=== PATIENT | male | born 1990 | race Caucasian/White ===

== ENCOUNTER 2017-03-21 09:57 | Emergency (ER) | payer OTHER ==
[~2017-03-21] VITALS: Ht 175.3 cm; Wt 86.2 kg
[~2017-03-21 09:57] MED LIST: ANTIBIOTIC O500 U/GM TOP; DILAUDID2 MG PO; PERCOCET 325 MG1 TA2 PO; PROTONIX 20MG T20 MG PO
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
[2017-03-21] MEDS ORDERED: PERCOCET 5-3251 EACH PO (10:44)
--- NOTE | 2017-03-21 10:52 | RADIOLOGY REPORT ---
EXAMINATION: XR ANKLE, LEFT CLINICAL INFORMATION: Left ankle pain and swelling. Evaluate for fracture. COMPARISON: None. TECHNIQUE: AP, lateral, and mortise views of the left ankle. FINDINGS: There is an oblique fracture of the distal fibular diametaphysis with minimal medial and posterior displacement. There is moderate lateral soft tissue swelling. The ankle mortise is grossly intact. IMPRESSION: Minimally displaced oblique fracture of the distal fibular diametaphysis with moderate lateral soft tissue swelling.
== END 2017-03-21 12:05 ==
LOC: ERH 09:57
DX: S82.432A Displaced oblique fracture of shaft of left fibula, initial encounter for closed fracture (principal); V03.99XA Pedestrian with other conveyance injured in collision with car, pick-up truck or van, unspecified whether traffic or nontraffic accident, initial encounter; Y93.9 Activity, unspecified; Y92.9 Unspecified place or not applicable
CPT/HCPCS: 73610-LT

== ENCOUNTER 2018-06-23 04:28 | Inpatient (IN) | payer OTHER ==
[~2018-06-23] VITALS: Ht 175.3 cm; Wt 74.8 kg
[~2018-06-23 04:28] MED LIST changes: +ATIVAN1 M1 PO; +CHLORDIAZEPOXID25 M3 PO; +HYDROXYZINE HCL50 M1 PO; +NAPROXEN500 M2 PO; +PERCOCET 5-3251 EACH PO; +PRILOSEC OTC20 M1 PO; +ZOFRAN ODT4 M1 SL
[2018-06-23 04:34] VITALS: BP 168/110
--- NOTE | 2018-06-23 04:34 | ED GENERAL ADULT ---
History of Present Illness General Chief Complaint: General Adult Stated Complaint: ANXIOUS Source: patient Exam Limitations: no limitations Vital Signs & Intake/Output Vital Signs & Intake/Output Vital Signs Date Time Temp Pulse Resp B/P B/P Pulse O2 O2 Flow FiO2 Mean Ox Delivery Rate 06/23 0958 98.7 99 20 130/73 96 Room Air 06/23 0836 97.8 85 22 118/74 96 Room Air 06/23 0830 97.8 85 20 118/74 06/23 0630 98.8 76 18 126/82 06/23 0629 98.8 76 18 126/82 99 Room Air 06/23 0505 98.2 76 20 168/110 / 0447 99 Room Air 06/23 0435 98.2 76 20 168/110 99 Room Air 06/23 0434 98.2 76 20 168/110 Allergies Coded Allergies: No Known Allergies (07/12/17) Reconcile Medications No Known Home Medications Triage Nurses Notes Reviewed? yes Onset: Gradual Duration: hour(s): Timing: recent history Injury Environment: home Severity: moderate Modifying Factors: Improves With: rest, other (better with alcohol). Associated Symptoms: "I got the shakes" HPI: 28 yo gentleman h/o alcohol abuse presents seeking alcohol detox. He notes that his last drink was last night. "I usually drink a lot." He notes prior to stopping, he would drink hard liquor "all the time." He has never had a withdrawal seizure. (Mireille PANDA,Maulik Santamaria) Past History Travel History Traveled to [place] past 21 day No Medical History Any Pertinent Medical History? 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 No (Mireille PANDA,Maulik Santamaria) Review of Systems Review of Systems Constitutional: Denies: see HPI. (Maulik Kendrick MD) Physical Exam Physical Exam General Appearance: well developed/nourished, mild distress, moderate distress Comments: Review of Systems - except as otherwise noted in HPI Review of Systems Constitutional:no symptoms. EENTM:no symptoms. Respiratory:no symptoms. Cardiovascular:no symptoms. GI:no symptoms. Genitourinary:no symptoms. Musculoskeletal:no symptoms. Skin:no symptoms. Neurological/Psychological:no symptoms. Hematologic/Endocrine:no symptoms. Immunologic/Allergic:no symptoms. All Other Systems: Reviewed and Negative Physical Exam Physical Exam General Appearance: well developed/nourished, mild/moderate distress Head: atraumatic, normal appearance Eyes: Bilateral: normal appearance. Ears, Nose, Throat: normal pharynx, normal ENT inspection Neck: normal inspection, supple, full range of motion Respiratory: normal breath sounds, chest non-tender, no respiratory distress, quiet respiration, lungs clear Cardiovascular: regular rate/rhythm Gastrointestinal: normal bowel sounds, soft, non-tender, no organomegaly Back: normal inspection, normal range of motion Extremities: normal inspection, normal capillary refill, normal range of motion, no edema, symmetric tremor of arms and legs. Neurologic/Psych: no motor/sensory deficits, awake, alert, oriented x 3 Skin: intact, normal color, warm/dry Core Measures ACS in differential dx? No CVA/TIA Diagnosis: No Sepsis Present: No Sepsis Focused Exam Completed? No (Mireille PANDA,Maulik Santamaria) Progress Differential Diagnoses I considered the following diagnoses in my evaluation of the patient: alcohol withdrawal vs detox vs other. Plan of Care: Orders Procedure Date/time Status Regular Diet 06/23 L Active CASE MANAGEMENT CONSULT 06/23 712 Active EKG 06/23 06 Active EKG 06/23 0453 Active Pathway - chart 06/23 434 Active CIWA 06/23 434 Active URINE DRUG SCREEN FOR ER ONLY 06/23 434 Active ETHANOL 06/23 434 Complete COMPREHENSIVE METABOLIC PANEL 06/23 434 Complete CBC WITHOUT DIFFERENTIAL 06/23 434 Complete Current Medications Sig/Vance Start time Last Medication Dose Stop Time Status Admin Clonidine 0.1 MG BID 06/23 2100 UNVr (Catapres) Gabapentin 300 MG Q8 06/23 06 UNVr 06/23 (Neurontin) 0505 Laboratory Tests 06/23/18 0445: Anion Gap 16, Estimated GFR > 60, BUN/Creatinine Ratio 14.3, Glucose 110 H, Calcium 9.1, Total Bilirubin 0.6, AST 40, ALT 30, Alkaline Phosphatase 53, Total Protein 7.3, Albumin 4.1, Globulin 3.2, Albumin/Globulin Ratio 1.3, CBC w Diff NO MAN DIFF REQ, RBC 4.78, MCV 92.2, MCH 31.9 H, MCHC 34.6, RDW 16.4 H, MPV 8.0, Gran % 66.5, Lymphocytes % 24.5, Monocytes % 5.1, Eosinophils % 3.3, Basophils % 0.6, Absolute Granulocytes 5.6, Absolute Lymphocytes 2.0, Absolute Monocytes 0.4, Absolute Eosinophils 0.3, Absolute Basophils 0, Serum Alcohol 75.0 Initial ED EKG: initial ekg... afib... likely artifact, ekg#2... nsr, no acute changes. Hand-Off Endorsed To: Kit Garcia DO Endorsed Time: 0700 Pending: consult, labs (Mireille PANDA,Maulik Santamaria) Departure Departure Disposition: STILL A PATIENT Condition: Stable Clinical Impression Primary Impression: Alcoholism Referrals: Patient Has No Primary Care Dr (PCP/Family) Departure Forms: Customer Survey General Discharge Information Prescriptions: Current Visit Scripts No Known Home Medications (Mireille PANDA,Maulik Santamaria) Admission Note Spoke With: Aftab Cheney MD Documentation of Exam: Documentation of any treatments & extenuating circumstances including Concerns Regarding Discharge (functional status, medication knowledge or non-compliance, living conditions, etc.) that warrant an admission rather than observation: [The patient needs admission for Ativan protocol and neuro evaluations every 6 hours. He was evaluated by case management in has been approved for alcohol detox admission.] He had a CIWA score greater than 18 (Kit Garcia DO) Critical Care Note Critical Care Note Critical Care Time: non-applicable (Mireille PANDA,Maulik Santamaria)
[2018-06-23 04:54] LABS: ABSOLUTE BASOPHIL COUNT 0 /CUMM (0.0-0.2); ABSOLUTE EOSINOPHIL COUNT 0.3 /CUMM (0.0-0.7); ABSOLUTE GRANULOCYTE CT 5.6 /CUMM (1.4-6.5); ABSOLUTE MONOCYTE COUNT 0.4 /CUMM (0.10-0.60); BASOPHIL % 0.6 % (0.0-2.0); EOSINOPHIL % 3.3 % (0-5); GRANULOCYTE % 66.5 % (42.2-75.2); HEMATOCRIT 44.1 % (42-52); MEAN CORPUSCULAR HGB 31.9 PG (27.0-31.0); MEAN CORPUSCULAR HGB CONC 34.6 G/DL (33.0-37.0); MEAN CORPUSCULAR VOLUME 92.2 FL (80.0-94.0); PLATELET COUNT 239 /CUMM (130-400); RBC DISTRIBUTION WIDTH 16.4 % (11.5-14.5); RED BLOOD CELL CT 4.78 /CUMM (4.70-6.10); WHITE BLOOD CELL COUNT 8.4 /CUMM (4.8-10.8)
[2018-06-23 06:30] VITALS: BP 126/82
[2018-06-23 08:30] VITALS: BP 118/74
[2018-06-23 10:30] VITALS: BP 130/73
--- NOTE | 2018-06-23 12:24 | History & Physical ---
Khushbu Cotton 06/23/18 1223: General Information and HPI MD Statement: I have seen and personally examined ANTHONY CLINE and documented this H&P. The patient is a 28 year old M who presented with a patient stated chief complaint of [alcohol detox]. Source of Information: patient, mentor friend Exam Limitations: no limitations History of Present Illness: Patient is 28-year-old male with past medical history of PTSD, alcohol dependence and anxiety came in for alcohol detox. Patient states that he started drinking since the age of 14 years, and over past couple of years he has been drinking around 34 bottles of vodka, every 2-3 days. Patient states that his last drink was yesterday in the afternoon and he drank one liter of vodka. Patient's [place] friend was present by bedside, and stated that patient was sober for 9 months from June 2017 until the end of March 2018 however after that his brother got out of prison and together they started drinking again. When asked about triggering factor, patient reported that he is very stressed in his life. Patient also reports of dry heaving however denies any vomiting. No history of withdrawal seizures. Patient states that his last alcohol detox was 2016 he states that he was admitted to the hospital but there are no records in the system. Patient has been on no medications since October 2017. Patient denied any headache/chest pain/difficulty breathing/abdominal discomfort /burning micturition/weakness or swelling in lower extremities. 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 Exam & Diagnostic Data Last 24 Hrs of Vital Signs/I&O Vital Signs Date Time Temp Pulse Resp B/P B/P Pulse O2 O2 Flow FiO2 Mean Ox Delivery Rate 06/23 1030 98.7 99 20 130/73 06/23 0958 98.7 99 20 130/73 96 Room Air 06/23 0836 97.8 85 22 118/74 96 Room Air 06/23 0830 97.8 85 20 118/74 06/23 0630 98.8 76 18 126/82 06/23 0629 98.8 76 18 126/82 99 Room Air 06/23 0505 98.2 76 20 168/110 06/23 0447 99 Room Air 06/23 0435 98.2 76 20 168/110 99 Room Air 06/23 0434 98.2 76 20 168/110 Intake & Output 06/23 1600 06/23 0800 06/23 0000 Intake Total 0 Output Total Balance 0 Intake, Oral 0 Patient 74.843 kg Weight Weight Reported by Patient Measurement Method Physical Exam General Appearance Alert, Oriented X3, Cooperative, No Acute Distress Skin No Rashes Skin Temp/Moisture Exam: Warm/Dry Sepsis Skin Exam (color): Normal for Ethnicity HEENT Atraumatic Neck Supple Cardiovascular tachycardia Lungs Clear to Auscultation, Normal Air Movement Abdomen Normal Bowel Sounds, Soft, No Tenderness Neurological Normal Speech, Normal Tone Extremities No Clubbing, No Cyanosis, No Edema Last 24 Hrs of Labs/Haseeb: Laboratory Tests 06/23/18 0445: Anion Gap 16, Estimated GFR > 60, BUN/Creatinine Ratio 14.3, Glucose 110 H, Calcium 9.1, Total Bilirubin 0.6, AST 40, ALT 30, Alkaline Phosphatase 53, Total Protein 7.3, Albumin 4.1, Globulin 3.2, Albumin/Globulin Ratio 1.3, CBC w Diff NO MAN DIFF REQ, RBC 4.78, MCV 92.2, MCH 31.9 H, MCHC 34.6, RDW 16.4 H, MPV 8.0, Gran % 66.5, Lymphocytes % 24.5, Monocytes % 5.1, Eosinophils % 3.3, Basophils % 0.6, Absolute Granulocytes 5.6, Absolute Lymphocytes 2.0, Absolute Monocytes 0.4, Absolute Eosinophils 0.3, Absolute Basophils 0, Serum Alcohol 75.0 Assessment/Plan Assessment: Patient is 28-year-old male with past medical history of PTSD, alcohol dependence and anxiety came in for alcohol detox. Patient states that he started drinking since the age of 14 years, and over past couple of years he has been drinking around 34 bottles of vodka, every 2-3 days. Patient states that his last drink was yesterday in the afternoon and he drank one liter of vodka. Patient's [place] friend was present by bedside, and stated that patient was sober for 9 months from June 2017 until the end of March 2018 however after that his brother got out of prison and together they started drinking again. When asked about triggering factor, patient reported that he is very stressed in his life. Patient also reports of dry heaving however denies any vomiting. No history of withdrawal seizures. Patient states that his last alcohol detox was 2016 he states that he was admitted to the hospital but there are no records in the system. Patient has been on no medications since October 2017. Patient denies any suicidal or homicidal ideations. Labs and vitals as above. No imaging done on admission. Assessment and plan Patient will be admitted on general medicine floor for alcohol detox, his CIWA in ER was 14 this am, scoring for tremors, anxiety, agitation. Will start him on Ativan 2 mg by mouth every 6 [id number] and 1 mg every when necessary for anxiety/agitation. Will give him by mouth thiamine, folic acid, and multivitamin tablets. Patient would eventually need psych evaluation for PTSD which also be done as an outpatient. Patient smokes one pack of cigarettes per day, will start him on 21 mg nicotine patch DVT prophylaxis subcutaneous Lovenox Patient is full code. As Ranked By This Provider Problem List: 1. Alcohol dependence syndrome Core Measures/Misc (08/11) Acute Coronary Syndrome ACS Diagnosis: No Congestive Heart Failure Congestive Heart Failure Diagnosis No Cerebrovascular Accident CVA/TIA Diagnosis: No VTE (View Protocol) VTE Risk Factors Age>40 No Mechanical VTE Prophylaxis d/t N/A MechProphylax Ordered No VTE Pharm Prophylaxis d/t NA PharmProphylax ordered Sepsis (View protocol) Sepsis Present: No If YES complete Sepsis Event Note If YES complete Sepsis Event Note Aftab Cheney MD 06/23/18 2213: Core Measures/Misc (08/11) Sepsis (View protocol) If YES complete Sepsis Event Note If YES complete Sepsis Event Note Attending MD Review Statement Attending Statement Attending MD Statement: examined this patient, discuss w/resident/PA/TENTER, agreed w/resident/PA/TENTER, reviewed EMR data (avail), amended to note Attending Assessment/Plan: The patient is a 28 yo male with h/o "PTSD", anxiety and EtOH dependence who presented in the ED requesting alcohol detox. He stated he drinks 3-4 bottles of vodka q2-3 days and drank 1 L of vodka the day prior to admission. He stated he had a 9 month period of sobriety (ended 04/11). He denied h/o seizures or suicidal ideation. No abdominal pain specifically, however endorsees generalized discomfort due to withdrawal at the time of my exam. Review of records indicate that he has had prior detox using Ativan/Librium prescribed by ED (no inpatient detox here at [place]). The patient did admit to using marijuana (tox screen ordered, however no urine obtained). Physical Exam: VS: T 98.7, P 99, R 20, BP 130/73, PO 96% RA HEENT: eyes- PERRLA, EOMI kaley- moist mucosa w/o lesions Neck: no adenopathy Chest: clear Cor: RRR nl S1, S2 w/o murm Abd: BS+, soft, NT, - HSM Ext: no edema, pulses 2+ Neuro: alert & oriented x 3, non-focal exam, mild tremor Labs/Tests- as above Impression/Plan: #Alcohol Dependence/Withdrawal- The patient scored CIWA of 12-14 in ED with blood alcohol level of 75. Has long h/o alcohol dependence and ?only outpatient Rx here. Appears to represent uncomplicated EtOH withdrawal. Plan: Admit to general medicine. Thiamine, MVI, folic acid, Ativan/CIWA protocol- as per protocol. Social service consult- ? IOP when discharged. #?H/O PTSD- as per patient- he did state he uses marijuana. Unclear if he obtained this diagnosis from a psychiatrist. Plan: Will discuss further with patient. Check urine tox screen (ordered, however not done). #Nicotine Dependence- noted smoker. Plan: Agree with nicotine patch.
[2018-06-23 14:42] VITALS: BP 148/102
--- NOTE | 2018-06-23 18:22 | Admission Certification ---
Admission Certification Certification Statement - As attending physician, I certify that at the time of - admission, based on clinical presentation, severity of - symptoms, need for further diagnostic testing and - therapeutic interventions, and risk of adverse outcomes - without in-hospital treatment, in my clinical assessment, - this patient requires an acute hospital stay for a minimum - of two nights or longer. I have also considered psychsocial - factors such as support system, advanced age, financial - issues, cognitive issues, and failed out-patient treatments, - past re-admission history, safety of patient, and lack of - compliance as applicable. Specific rationale supporting this admission is: The patient presents with acute alcohol withdrawal and requires admission for CIWA/Ativan - close monitoring for severe DT's. Will treat with Thiamine, MVI, folate as per protocol. Social Service consult.
[2018-06-23 23:35] VITALS: BP 123/71
[2018-06-24] VITALS (7 sets, daily range): BP systolic 120–162; BP diastolic 82–118
--- NOTE | 2018-06-24 05:33 | PN- Housestaff ---
Sly Madrid 06/24/18 0532: Subjective Follow-up For: Alcohol dependency/withdrawal Subjective: He says that his condition is improved and has less tremor and discomfort. Review of Systems Constitutional: Reports: see HPI. Objective Last 24 Hrs of Vital Signs/I&O Vital Signs Date Time Temp Pulse Resp B/P B/P Pulse O2 O2 Flow FiO2 Mean Ox Delivery Rate 06/25 0406 97.7 94 20 150/100 100 Room Air 06/25 0009 98.3 86 20 130/100 99 Room Air 06/24 2204 85 162/118 06/24 2100 162/110 06/24 2012 87 148/110 06/24 2000 98.3 87 16 148/110 06/24 2000 98.3 87 16 148/110 96 Room Air 06/24 1600 98.2 70 16 132/90 06/24 1600 98.2 70 16 132/90 98 Room Air 06/24 1506 97.4 82 20 130/84 97 Room Air Intake & Output 06/25 1600 06/25 0800 06/25 0000 Intake Total 433 Output Total Balance 433 Intake, IV 33 Intake, Oral 400 Physical Exam General Appearance: Alert, Oriented X3, Cooperative, No Acute Distress Skin: No Rashes Skin Temp/Moisture Exam: Warm/Dry Sepsis Skin Exam (color): Normal for Ethnicity HEENT: Atraumatic Neck: Supple Cardiovascular: Regular Rate, Normal S1, Normal S2 Lungs: Clear to Auscultation, Normal Air Movement Abdomen: Normal Bowel Sounds, Soft, No Tenderness Neurological: Normal Speech, Strength at 5/5 X4 Ext, Minimal Tremor Assessment/Plan Assessment: A 28-year-old male with no significant past medical history comes with chief complaint of alcohol withdrawal. He also was in EtOH program 9 months [employer]. Based on physical exam and history today the patient appears improved, he had less tremor and discomfort. The plan is to continue CIWA protocol. This case was discussed with social work faculty member and they are exploring options when ready for discharge. Problem List: 1. Alcohol withdrawal Pain Ratin Pain Location: NA Pain Goal: Remain pain free Pain Plan: NA Tomorrow's Labs & Rationales: BEP CBC NATIVIDAD Cheney MD,[place]ab 06/24/18 1506: Attending MD Review Statement Attending Statement Attending MD Statement: examined this patient, discuss w/resident/PA/TREE FARMER, agreed w/resident/PA/TREE FARMER, reviewed EMR data (avail), discussed with nursing, discussed with case mgmt, amended to note Attending Assessment/Plan: The patient was seen and discussed with house staff, nursing, case management and social service (Phyllis Franklin). The patient appears improved- less tremor and discomfort. Will continue Ativan and CIWA protocol. He did inform us that he had been in [place] Et[facility] program 9 months prior. transportation services representative to explore options when ready for discharge. Impression/Plan: #Alcohol Dependence/Withdrawal- The patient is improving. CIWA 0-2. Social service input appreciated. Plan: Continue Ativan taper/CIWA. Thiamine, MVI, folic acid- as per protocol. #?H/O PTSD- as per patient- he did state he uses marijuana. The patient did not elaborate regarding trauma experienced leading to his PTSD. Plan: Outpatient follow-up #Nicotine Dependence- noted smoker. Plan: Continue nicotine patch.
[2018-06-24 08:49] LABS: ABSOLUTE BASOPHIL COUNT 0 /CUMM (0.0-0.2); ABSOLUTE EOSINOPHIL COUNT 0.7 /CUMM (0.0-0.7); ABSOLUTE GRANULOCYTE CT 5.1 /CUMM (1.4-6.5); ABSOLUTE LYMPH COUNT 1.9 /CUMM (1.2-3.4); ABSOLUTE MONOCYTE COUNT 0.5 /CUMM (0.10-0.60); BASOPHIL % 0.4 % (0.0-2.0); EOSINOPHIL % 8.6 % (0-5); GRANULOCYTE % 62.4 % (42.2-75.2); HEMATOCRIT 46.8 % (42-52); MEAN CORPUSCULAR HGB 31.1 PG (27.0-31.0); MEAN CORPUSCULAR HGB CONC 32.8 G/DL (33.0-37.0); MEAN CORPUSCULAR VOLUME 94.6 FL (80.0-94.0); MEAN PLATELET VOLUME 9.1 FL (7.4-10.4); PLATELET COUNT 192 /CUMM (130-400); RBC DISTRIBUTION WIDTH 16.3 % (11.5-14.5); RED BLOOD CELL CT 4.95 /CUMM (4.70-6.10); WHITE BLOOD CELL COUNT 8.2 /CUMM (4.8-10.8)
[2018-06-25 00:09] VITALS: BP 130/100
[2018-06-25 04:06] VITALS: BP 150/100
--- NOTE | 2018-06-25 06:25 | Event Note ---
See Addendum Event Note Event Note: Around 6 AM was called by nurse that patient wanted to leave AMA. Went and spoke to the patient regarding why he would like to go home AMA he stated that he has court dates and would like to leave. I explained the consequences of leaving AMA which included that he would not get the proper discharge planning for outpatient rehab, any medications on discharge. And the consequences of not withdrawing appropriately includes seizures DTs including . Patient verbalized understanding of the above to me. Review of EMR there was no mention the patient did not have capacity to make decisions to leave AMA. Upon my evaluation he had capacity. AMA form signed and witnessed.
== END 2018-06-25 06:42 | disposition left against medical advice (07) | DRG 770 ==
LOC: ERH 04:28 → 2NB 11:27 → ERHI 11:27 → ENRESERV 12:33 → ENTRNSPT 13:55 → EDTRNSPTSTS 14:31 → EDTRNSPT 14:31 → 2NB 14:33 → CMPTRNSPT 14:46 → 2NB 06-25 06:42
PROVIDERS: Internal Medicine; Pediatrics
DX: F10.239 Alcohol dependence with withdrawal, unspecified (principal); F43.12 Post-traumatic stress disorder, chronic; F17.200 Nicotine dependence, unspecified, uncomplicated; Y90.3 Blood alcohol level of 60-79 mg/100 ml; F41.9 Anxiety disorder, unspecified
CPT/HCPCS: 2NBSP; 36415; 80307; 82436; 93005; 93010; 96374; G0480; J1650; J3490

== ENCOUNTER 2018-06-25 23:01 | Observation (INO) | payer OTHER ==
[~2018-06-25] VITALS: Ht 175.3 cm; Wt 76.2 kg
--- NOTE | 2018-06-25 23:45 | ED PSYCHIATRIC COMPLAINT ---
History of Present Illness General Chief Complaint: ETOH/Drug Related Complaint Stated Complaint: REQUESTING TO DETOX Source: patient, old records Exam Limitations: no limitations Vital Signs & Intake/Output Vital Signs & Intake/Output Vital Signs Date Time Temp Pulse Resp B/P B/P Pulse O2 O2 Flow FiO2 Mean Ox Delivery Rate 08/ 0800 98.0 59 20 128/72 08/02 0715 98.0 59 20 128/72 99 Room Air 08/ 0600 98.2 112 20 118/87 08/02 0422 97.5 101 18 110/81 98 Room Air 08/ 0400 98.0 72 20 129/69 08/ 0208 97.6 114 18 124/82 08/ 0208 97.6 114 18 124/82 98 Room Air / 0007 Room Air / 0006 97.2 116 20 127/88 08/ 2307 97.2 116 20 127/88 98 Room Air ED Intake and Output / 0000 08 1200 Intake Total Output Total Balance Patient 168 lb Weight Weight Reported by Patient Measurement Method Allergies Coded Allergies: No Known Allergies (07/12/17) Reconcile Medications No Known Home Medications Triage Note: PT HERE REQUESTING DETOX. PT WAS D/C THIS AM FROM ED. PT REPORTS HE THINKS HE LEFT TOO QUICKLY. PT DENIES ANY ETOH USE TODAY. PT REPORTS THAT WHEN HE GOES INTO WITH DRAWL HE GERTS THE SHAKES, SWEATS AND CONFUSED. Triage Nurses Notes Reviewed? yes Onset: Just prior to arrival Duration: hour(s):, constant, continues in ED Timing: recent history Severity: moderate Associated Symptoms: anxiety, impaired concentration HPI: 4 days prior to admission the patient at his last alcoholic drink. He was subsequently admitted to the hospital for alcohol dependence and withdrawal. He signed out of the hospital less than 1 day prior to admission AGAINST MEDICAL ADVICE. He returns feeling shaky and agitated requesting alcohol detox. He denies fever chills nausea vomiting diarrhea abdominal pain chest pain shortness of breath headache dysuria rash bleeding suicidal ideation homicidal ideation hallucination. (Lima PANDA,Patel) Past History Travel History Traveled to [place] past 21 day No Medical History Any Pertinent Medical History? 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 No (Patel Amato MD) Review of Systems Review of Systems Constitutional: Reports: see HPI. EENTM: Reports: no symptoms. Respiratory: Reports: no symptoms. Cardiovascular: Reports: no symptoms. GI: Reports: no symptoms. Genitourinary: Reports: no symptoms. Musculoskeletal: Reports: no symptoms. Skin: Reports: no symptoms. Neurological/Psychological: Reports: see HPI, confusion, emotional problems. Hematologic/Endocrine: Reports: no symptoms. Immunologic/Allergic: Reports: no symptoms. All Other Systems: Reviewed and Negative (Patel Amato MD) Physical Exam Physical Exam General Appearance: well developed/nourished, alert, awake, anxious, mild distress Head: atraumatic, normal appearance Eyes: Bilateral: normal appearance, PERRL, EOMI. 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 patient not suicidal (Patel Amato MD) Progress Differential Diagnosis: drug intoxication, drug overdose, drug withdrawal, electrolyte abnormality, hypoglycemia Plan of Care: Orders Procedure Date/time Status Regular Diet 06/27 B Active Regular Diet 06/26 B Active Discharge Patient 06/26 0838 Active Intake & Output 06/26 0006 Active OXYGEN SETUP (GEN) 06/26 0003 Active Saline Lock 08/[address] in observation 06/26 3 Active Patient Data 06/26 3 Active Vital Signs 06/26 3 Active Activity/Ambulation 06/26 3 Active Code Status 06/26 3 Active CIWA 06/25 2343 Active URINE DRUG SCREEN FOR ER ONLY 06/25 2343 Complete ETHANOL 06/25 2343 Complete COMPREHENSIVE METABOLIC PANEL 06/25 2343 Complete CBC WITHOUT DIFFERENTIAL 06/25 2343 Complete Current Medications Sig/Vance Start time Last Medication Dose Stop Time Status Admin Clonidine 0.1 MG Q8 06/25 2343 AC 06/26 (Catapres) 32 Gabapentin 300 MG Q8 06/25 2343 AC 06/26 (Neurontin) 0632 Laboratory Tests 06/26/18 0024: Urine Opiates Screen < 100, Methadone Screen 68, Barbiturate Screen < 60, Ur Phencyclidine Scrn < 6.00, Amphetamines Screen < 100, U Benzodiazepines Scrn < 85, Urine Cocaine Screen < 50, Urine Cannabis Screen > 80.00 H 06/25/189: Anion Gap 12, Estimated GFR > 60, BUN/Creatinine Ratio 15.0, Glucose 89, Calcium 9.8, Total Bilirubin 1.6 H, AST 79 H, ALT 67, Alkaline Phosphatase 53, Total Protein 8.1, Albumin 4.6, Globulin 3.5, Albumin/Globulin Ratio 1.3, CBC w Diff NO MAN DIFF REQ, RBC 5.23, MCV 93.6, MCH 31.2 H, MCHC 33.3, RDW 16.1 H, MPV 8.9, Gran % 69.1, Lymphocytes % 19.0 L, Monocytes % 7.4, Eosinophils % 4.1, Basophils % 0.4, Absolute Granulocytes 6.7 H, Absolute Lymphocytes 1.8, Absolute Monocytes 0.7 H, Absolute Eosinophils 0.4, Absolute Basophils 0, Serum Alcohol < 10.0 Hand-Off Endorsed To: Anabel PANDA,Les Alvarez Endorsed Time: 0700 (Patel Amato MD) Departure Departure Disposition: STILL A PATIENT Condition: Stable Clinical Impression Primary Impression: Alcohol dependence Referrals: Patient Has No Primary Care Dr (PCP/Family) Departure Forms: Customer Survey General Discharge Information Prescriptions: Current Visit Scripts No Known Home Medications (Patel Amato MD) ED Attending Observation Observation Discharge: I have reevaluated ANTHONY CLINE on 06/26/18 at 0838. The patient is: ([X]): Stable for discharge (): To be admitted to Nursing Floor (): To be placed in Observation on Nursing Floor (): For transfer to other facility The patient was being observed for [ALCOHOL INTOXICATION] As a result of that observation, I have determined [STABLE FORDISCHARGE]. (Anabel PANDA,Les Alvarez)
[2018-06-26 00:08] VITALS: BP 124/82
[2018-06-26 00:09] LABS: ABSOLUTE BASOPHIL COUNT 0 /CUMM (0.0-0.2); ABSOLUTE EOSINOPHIL COUNT 0.4 /CUMM (0.0-0.7); ABSOLUTE GRANULOCYTE CT 6.7 /CUMM (1.4-6.5); ABSOLUTE LYMPH COUNT 1.8 /CUMM (1.2-3.4); ABSOLUTE MONOCYTE COUNT 0.7 /CUMM (0.10-0.60); BASOPHIL % 0.4 % (0.0-2.0); EOSINOPHIL % 4.1 % (0-5); GRANULOCYTE % 69.1 % (42.2-75.2); HEMATOCRIT 48.9 % (42-52); MEAN CORPUSCULAR HGB 31.2 PG (27.0-31.0); MEAN CORPUSCULAR HGB CONC 33.3 G/DL (33.0-37.0); MEAN CORPUSCULAR VOLUME 93.6 FL (80.0-94.0); MEAN PLATELET VOLUME 8.9 FL (7.4-10.4); PLATELET COUNT 195 /CUMM (130-400); RBC DISTRIBUTION WIDTH 16.1 % (11.5-14.5); RED BLOOD CELL CT 5.23 /CUMM (4.70-6.10); WHITE BLOOD CELL COUNT 9.6 /CUMM (4.8-10.8)
[2018-06-26 02:08] VITALS: BP 124/82
[2018-06-26 04:00] VITALS: BP 129/69
[2018-06-26 06:00] VITALS: BP 118/87
[2018-06-26 08:00] VITALS: BP 128/72
[2018-06-26 09:14] VITALS: BP 124/70
== END 2018-06-26 10:24 ==
LOC: ERH 23:01 → ERHI 06-26 00:03
PROVIDERS: Emergency Medicine
DX: F10.229 Alcohol dependence with intoxication, unspecified (principal); F17.210 Nicotine dependence, cigarettes, uncomplicated; F41.9 Anxiety disorder, unspecified
CPT/HCPCS: 6090; 80307; G0378; G0480